=== PATIENT | male | born 1965 | race Caucasian/White ===

== ENCOUNTER 2022-08-09 14:48 | Emergency (ER) | payer SELFPAY ==
[2022-08-09 15:18] VITALS: BP 125/88; PULSE 58; RESP 15; TEMP 36.4; O2SAT 98
--- NOTE | 2022-08-09 16:40 | ED.WOUNDLAC ---
HPI - Wound/Laceration General Chief Complaint: Wound/Laceration Stated Complaint: left thumb lac Time Seen by Provider: 08/09/22 16:04 Source: patient Mode of arrival: ambulatory Limitations: no limitations History of Present Illness HPI narrative: Patient presented to ED with report of laceration to his left thumb. Patient reports he was using a knife to cut a wire yesterday afternoon around 3 PM and sustained a laceration to his left thumb distal finger pad. He was able to control the bleeding at that time and bandaged it. Today he was putting on his shoes and accidentally hit his left thumb. He began bleeding again, which prompted his presentation. Patient is on any blood thinners. He has not taken anything for pain. No numbness, tingling. Tetanus is up-to-date. Related Data Allergies Allergy/AdvReac Type Severity Reaction Status Date / Time No Known Allergies Allergy Verified 08/09/22 16:11 Review of Systems Review of Systems: CONSTITUTIONAL: Denies fever, chills, or sweats. SKIN: See HPI. MUSCULOSKELETAL: See HPI. All systems reviewed & are unremarkable except as noted in HPI and below [facility] Past Medical History Medical History (Updated 08/09/22 @ 17:57 by Tigist Rodriguez PA-C) No pertinent past medical history Surgical History Surgical History (Updated 08/09/22 @ 17:57 by Tigist Rodriguez PA-C) No pertinent past surgical history Social History Social History (Updated 08/09/22 @ 17:57 by Tigist Rodriguez PA-C) Smoking status: Never smoker Exam Narrative: GENERAL: Well appearing, obese, non-toxic, in no acute distress. HEAD: Normocephalic, atraumatic. NECK: Supple. No adenopathy, no masses. RESPIRATORY: Airway patent, respirations nonlabored. CARDIOVASCULAR: Regular rate and rhythm without murmurs, rubs, or gallops. Radial pulses 2+ and equal bilaterally. MUSCULOSKELETAL: Moves all extremities. Strength/ROM intact without gross deformities. Full range of motion of left fingers. Approx. 1cm laceration flap to L thumb distal finger pad. Approaches nail, but no nail involvement or avulsion. No active bleeding. Sensation intact. Good capillary refill. SKIN: Warm, dry, normal color. No rashes. NEURO: A&O X3. Speech clear. Cranial nerves II-XII grossly intact. Steady gait. No ataxic movements. PSYCHIATRIC: Appropriate mood and affect. Normal interaction. Course Vital Signs Vital signs: Vital Signs Temperature 97.5 F L 08/09/22 15:18 Pulse Rate 58 L 08/09/22 15:18 Respiratory Rate 15 08/09/22 15:18 Blood Pressure 125/88 08/09/22 15:18 Pulse Oximetry 98 08/09/22 15:18 Oxygen Delivery Room Air 08/09/22 15:18 Temperature 97.5 F L 08/09/22 15:18 Pulse Rate 64 08/09/22 17:27 Respiratory Rate 17 08/09/22 17:27 Blood Pressure 144/86 H 08/09/22 17:27 Pulse Oximetry 100 08/09/22 17:27 Oxygen Delivery Room Air 08/09/22 15:18 MDM - Wound/Laceration MDM Narrative Medical decision making narrative: Patient presented to ED with report of laceration to left thumb, sustained > 24 hours ago. Neurovascularly intact. No active bleeding by the time of my evaluation. Patient refused x-ray. Due to delayed closure, will not suture. Wound was thoroughly irrigated. Steri-Strips placed. Patient will be prescribed short course of antibiotics for infection prophylaxis due to delayed time from injury. Tetanus status up-to-date. Patient given return precautions. He agrees with plan. Medical Records Attestation: I reviewed the patient's medical records. Discharge Plan Discharge Clinical Impression: Laceration of left thumb Qualifiers: Encounter type: initial encounter Damage to nail status: without damage Foreign body presence: without foreign body Qualified Code(s): S61.012A - Laceration without foreign body of left thumb without damage to nail, initial encounter Patient Disposition: Home, Self-Care Condition: Stable Instructions: Antibio
[2022-08-09 17:27] VITALS: BP 144/86; PULSE 64; RESP 17; O2SAT 100
== END 2022-08-09 17:30 | disposition home or self-care (01) ==
PROVIDERS: Emergency Provider Physician Assistant
DX: S61.012A Laceration without foreign body of left thumb without damage to nail, initial encounter (principal); W26.0XXA Contact with knife, initial encounter
CPT/HCPCS: 99283